=== PATIENT | male | born 1975 | race Caucasian/White ===

== ENCOUNTER 2025-01-31 17:50 | Emergency (ER) | payer BC, SELFPAY ==
--- OUTSIDE RECORDS SUMMARY | 2025-01-31 17:51 | XMS_ITS | Clinical Summary ---
Author Organization [facility] Address [address] [place] [address] Care Team Providers Care Full Time Staff Interpreter Name Role Phone Mando Correia MD Primary Care Provider [phone] Source Comments [facility],non-owned Affiliates and Associated Physician Practices is amultiple site organization consisting of ambulatory clinics and hospital sitesin [place], [place], [place] and [place]. This disclosure is being madepursuant to the Care Everywhere program and may not contain all information available regarding this patient. Last updated 18.[facility] [employer] Allergies No known active allergies Medications * Be aware that medications may not be up to date on this document. Alwaysverify current medications with the patient. albuterol HFA (PROVENTIL;JEANNA TREVOR;PROAIR) 108 (90 BASE) MCG/ACT inhalerIndicatio ns:Acute bronchitis, unspecified organism Inhale 2 puffs by mouth every 6 hours as needed for Shortness of Breath 1 Inhaler 8 Active methylPREDNISolo ne (MEDROL DOSEPAK) 4 MG tabletIndication s:Acute bronchitis, unspecified organism Take by mouth as directed 1 Each 8 Active benzonatate (TESSALON) 100 MG capsuleIndicatio ns:Cough Take 1 capsule by mouth 3 times daily as needed for Cough Reasons: Cough 30 capsule 8 Active Social History Tobacco Use Types Packs/Day Years Used Date Smoking Tobacco: Former Cigarettes Q uit: 2005 Smokeless Tobacco: Never Sex and Gender Information Value Date Recorded Sex Assigned at Not on file Legal Sex Male 8:00 PM PRIVATE BRANCH EXCHANGE OPERATOR Gender Identity Not on file Sexual Orientation Not on file Last Filed Vital Signs Vital Sign Reading Time Taken Comments Blood Pressure 140/84 08/22/2017 12:11 PM PRIVATE BRANCH EXCHANGE OPERATOR Pulse 123 08/22/2017 12:11 PM PRIVATE BRANCH EXCHANGE OPERATOR Temperature 36.8 C (98.3 F) 08/22/2017 12:11 PM PRIVATE BRANCH EXCHANGE OPERATOR Respiratory Rate 16 06/13/2017 2:43 PM PRIVATE BRANCH EXCHANGE OPERATOR Oxygen Saturation 96% 08/22/2017 12:11 PM PRIVATE BRANCH EXCHANGE OPERATOR Inhaled Oxygen Concentration - - Weight 120.2 kg (265 lb) 08/22/2017 12:11 PM PRIVATE BRANCH EXCHANGE OPERATOR Height 182.9 cm (6') 08/22/2017 12:11 PM PRIVATE BRANCH EXCHANGE OPERATOR Body Mass Index 35.94 08/22/2017 12:11 PM PRIVATE BRANCH EXCHANGE OPERATOR Plan of Treatment Health Maintenance Due Date Last Done Comments COLOGUARD (AGES 45-75) - COL ON CA SCREENING 1976 COLON MONITORING 1976 COLONOSCOPY - COLON CA SCREENING 1976 CT COLONOGRAPHY - COLON CA SCREENING 1976 Colorectal Cancer Screening 1976 FIT - COLON CA SCREENING 1976 FLEX SIG - COLON CA SCREENING 1976 LIPID TESTING 1976 HIV SCREENING 10/29/1991 HEPATITIS C SCREENING 10/24/1994 DTAP/TDAP/TD VACCINES (1 - Tdap) 10/29/1995 HEPATITIS B VACCINE (1 of 3 - 19+ 3-dose series) 10/29/1995 SCREENING FOR DIABETES 06/13/2017 COVID-19 VACCINE ( - 2023-2 5 season) 2024 DEPRESSION SCREENING 08/02/2024 INFLUENZA VACCINE (Season Ended) 2025 ZOSTER VACCINE (1 of 2) 2026 HIB VACCINE Aged Out No longer eligi ble based on patient's age to complete this topic HPV VACCINE Aged Out No longer eligi ble based on patient's age to complete this topic MENINGOCOCCAL (Group B) VACC INE SHARED DECISION-MAKING Aged Out No longer eligibl e based on patient's age to complete this topic MENINGOCOCCAL GROUPS A/C/Y/W VACCINE Aged Out No longer eligible b ased on patient's age to complete this topic PNEUMOCOCCAL VACCINE Aged Out No long er eligible based on patient's age to complete this topic Insurance [facility] Care Teams Full Time Staff Interpreter Relationship Specialty Start Date End Date Mando Croreia MD [facility] [place] [address] PCP - General Family Medicine 06/13/17
[2025-01-31 17:55] VITALS: BP 190/120; PULSE 100; RESP 17; TEMP 36.9; O2SAT 100
--- NOTE | 2025-01-31 17:57 | ED_ITS ---
HPI - Dental/Oral General Chief complaint: Dental/Oral Stated complaint: infected tooth Time Seen by Provider: 01/31/25 17:53 History of Present Illness HPI Narrative: Patient is a 49-year-old male who presents to the ER with dental pain times 7 days. No fevers or chills or sweats. No difficulty breathing or swelling. Cannot see a dentist until April. Related Data Allergies Allergy/AdvReac Type Severity Reaction Status Date / Time morphine AdvReac Vomiting Verified 01/31/25 17:55 Review of Systems Constitutional: Constitutional: Reports no additional constitutional complaints ENT: Reports system reviewed and no additional complaints, except as documented Exam Narrative: GENERAL: Well-appearing, well-nourished, and in no acute distress. HEAD: Normocephalic, atraumatic. ENT: Mucous membranes moist. Poor dentition. Large dental keyanna on tooth number 30 which is where patient's pain is located. No facial swelling. NEURO: Alert and oriented x3. PSYCH: Normal mood and affect. Course Course Emergency Course: Discussed dental wax. Discharge with antibiotic pain medication. Discharge Plan Discharge Clinical Impression: Dental caries, Toothache Patient Disposition: Home Condition: Stable Instructions: Antibiotic Form, Toothache (ED) Additional Instructions: Take antibiotics. Follow up with a dentist. Return to the ER if you cannot breathe or swallow. Patient Language: Korean Prescriptions: New hydrocodone-acetaminophen 5-325 mg tablet 1 tablet PO Q6H PRN (Reason: pain) Qty: 10 0RF amoxicillin-pot clavulanate 875-125 mg tablet 1 tablet PO Q12H Qty: 20 0RF Follow-up/Referrals: Dental Referral Line [Outside] - 1 Week
--- OUTSIDE RECORDS SUMMARY | 2025-01-31 18:26 | XMS_ITS | Encounter Summary ---
Author Organization [facility] Address [address] [place] [address] Care Team Providers Care Internal Investigator Name Role Phone Paul Payne MD Primary Care Provider Encounter Details Date Type Department Care Team (Late st Contact Info) Description 07/03/2022 teextee Message [facility] Patient Accounts [address] [place], [place] [id number] [facility] Monthly Credit Card Payment Social History Tobacco Use Types Packs/Day Years Used Date Smoking Tobacco: Former Cigarettes 3 10 0 08/02/1991 - 08/02/2001 Smokeless Tobacco: Never Comments:pcp to children counselor Alcohol Use Standard Drinks/Week Comments Yes 0 (1 standard drink = 0.6 oz pur e alcohol) RARE PHQ-2 Answer Date Recorded PHQ-2 Score - If the patient scores above 3, please move on to questions 3-9 0 06/15/2022 Sex and Gender Information Value Date Recorded Sex Assigned at Male 10/30/2024 7:51 AM CDT Legal Sex Male 6:46 AM COMPLIANCE REVIEWER Gender Identity Not on file Sexual Orientation Not on file COVID-19 Exposure Response Date Recorded In the last 10 days, have yo u been in contact with someone who was confirmed or suspected to have Coronavirus/COVID-19? No / Unsure 07/06/2022 1:57 PM COMPLIANCE REVIEWER documented as of this encounter Plan of Treatment Not on file documented as of this encounter Visit Diagnoses Not on filedocumented in this encounter Additional Health Concerns Infection Onset Date Last Indicated Resolved Time COVID-19 Rule Out 07/06/2022 07/06/2022 07/09/2022 11:25 AM COMPLIANCE REVIEWER COVID-19 Confirmed 07/06/2022 07/06/2022 2 12:32 AM COMPLIANCE REVIEWER documented as of this encounter Care Teams Internal Investigator Relationship Specialty Start Date End Date Paul Payne MD [address] [place] [address] [place] [address] PCP - General FAMILY PRACTICE 01/05/22 documented as of this encounter
--- OUTSIDE RECORDS SUMMARY | 2025-01-31 18:26 | XMS_ITS | Clinical Summary ---
Author Organization [facility] Address [address] [place] [address] Care Team Providers Care Laundry Or Dry Cleaners Counter Clerk Name Role Phone Mando Correia MD Primary Care Provider [phone] Source Comments [facility],non-owned Affiliates and Associated Physician Practices is amultiple site organization consisting of ambulatory clinics and hospital sitesin [place], [place], [place] and [place]. This disclosure is being madepursuant to the Care Everywhere program and may not contain all information available regarding this patient. Last updated 18.[facility] [employer] Allergies No known active allergies Medications * [...] on file Legal Sex Male 8:00 PM CHECK SCALER Gender Identity Not on file Sexual Orientation Not on file Last Filed Vital Signs Vital Sign Reading Time Taken Comments Blood Pressure 140/84 08/22/2017 12:11 PM CHECK SCALER Pulse 123 08/22/2017 12:11 PM CHECK SCALER Temperature 36.8 C (98.3 F) 08/22/2017 12:11 PM CHECK SCALER Respiratory Rate 16 06/13/2017 2:43 PM CHECK SCALER Oxygen Saturation 96% 08/22/2017 12:11 PM CHECK SCALER Inhaled Oxygen Concentration - - Weight 120.2 kg (265 lb) 08/22/2017 12:11 PM CHECK SCALER Height 182.9 cm (6') 08/22/2017 12:11 PM CHECK SCALER Body Mass Index 35.94 08/22/2017 12:11 PM CHECK SCALER Plan of Treatment Health Maintenance Due Date [...] patient's age to complete this topic Insurance [facility] Care Teams Laundry Or Dry Cleaners Counter Clerk Relationship Specialty Start Date End Date Mando Correia MD [facility] [place] [address] PCP - General Family Medicine 06/13/17
--- OUTSIDE RECORDS SUMMARY | 2025-01-31 18:26 | XMS_ITS | Encounter Summary ---
Author Organization [facility] Address [address] [place] [address] Care Team Providers Care Toe Puller Name Role Phone Paul Payne MD Primary Care Provider Encounter Details Date Type Department Care Team (Late st Contact Info) Description 06/09/2023 [employer] Message [employer]) Business Office [place] [address] [facility] Provider Action Needed Social History Tobacco Use Types Packs/Day Years Used Date Smoking Tobacco: Former Cigarettes 3 10 0 08/02/1991 - 08/02/2001 Smokeless Tobacco: Never Comments:pcp to certified credit counselor Alcohol Use Standard Drinks/Week Comments Yes 0 (1 standard drink = 0.6 oz pur e alcohol) RARE PHQ-2 Answer Date Recorded Patient Health Questionnaire-2 Score 0 05/17/2023 Sex and Gender Information Value Date Recorded Sex Assigned at Male 10/30/2024 7:51 AM CDT Legal Sex Male 6:46 AM DIGITAL CARTOGRAPHIC TECHNICIAN Gender Identity Not on file Sexual Orientation Not on file documented as of this encounter Plan of Treatment Not on file documented as of this encounter Visit Diagnoses Not on filedocumented in this encounter Additional Health Concerns Assessment Noted Time PHQ-9 Depression Total Score: 0 09/21/19 23 8:24 AM DIGITAL CARTOGRAPHIC TECHNICIAN documented as of this encounter Care Teams Toe Puller Relationship Specialty Start Date End Date Paul Payne MD [address] [place] [address] [place] [address] PCP - General FAMILY PRACTICE 01/05/22 documented as of this encounter
--- OUTSIDE RECORDS SUMMARY | 2025-01-31 18:26 | XMS_ITS | Clinical Summary ---
Author Organization [facility] Address [address] [place] [address] Care Team Providers Care Fire Prevention Inspector Name Role Phone Paul Payne MD Primary Care Provider Allergies No known active allergies Medications metoprolol succinate ER (TOPROL-XL) 25 MG 24 hr tabletIndications :Benign essential HTN Take 1 tablet (25 mg total) by mouth 2 (two) times a day. 180 tablet 01/30/20 25 Active atorvastatin (LIPITOR) 10 MG tabletIndications :Mixed hyperlipidemia Take 1 tablet (10 mg total) by mouth nightly at bedtime. 90 tablet 01/30/20 25 Active D-1000 EXTRA STRENGTH 25 MCG (1000 UT) Tab tabletIndications :Vitamin D deficiency TAKE 5 TABLETS BY MOUTH EVERY DAY 450 tablet 09/28/19 24 025 Discontinued meloxicam (MOBIC) 15 MG tabletIndications :Left foot pain,Plantar fasciitis Take 1 tablet (15 mg total) by mouth daily. 30 tablet 10/31/19 25 025 Discontinued metoprolol succinate ER (TOPROL-XL) 25 MG 24 hr tabletIndications :Benign essential HTN Take 1 tablet (25 mg total) by mouth every evening. 90 tablet 1 10/31/19 25 025 Discontinued(Re order) Active Problems Problem Noted Date Diagnosed Date Benign essential HTN 01/05/2022 Prediabetes 01/05/2022 Mixed hyperlipidemia 01/05/2022 Vitamin D deficiency 01/05/2022 Class 2 severe obesity due t o excess calories with serious comorbidity and body mass index (BMI) of 37.0 to 37.9 in adult 01/05/2022 Resolved Problems Problem Noted Date Diagnosed Date Resolved Date History of headache 02/10/2023 01/30/20 Screen for colon cancer 04/14/202204/03 Overview (04/14/2022): Added automatically from request for surgery [id number] Encounter for weight management 02/16/2022 02/23/2022 Encounters Date Type Department Care Team Description 01/29/2025 1:20 PM CDT Office Visit [address] [place] [address] Paul Payne MD Follow Up (3 month ) 01/29/2025 Travel 11/01/[address] [place] [address] Paul Payne MD Results from Last 3 Months Immunizations Immunization Administration Dates Next Due Pneumococcal (Pneumovax 23) 01/05/2022 Family History Medical History Relation Comments Arthritis Father Diabetes Father Heart Attack Father Heart Disease Father Hyperlipidemia Father Hypertension Father Cancer Maternal Grandmother Cancer Mother Lupus Mother No Known Problems Sister Relation Status Comments Father Alive Maternal Grandmother Alive Mother Alive Sister Alive Social History Tobacco Use Types Packs/Day Years Used Date Smoking Tobacco: Former Cigarettes 3 10 0 08/02/1991 - 08/02/2001 Smokeless Tobacco: Never Tobacco Cessation:Counseling Given: No Comments:pcp to certified rehabilitation counselor Alcohol Use Standard Drinks/Week Comments Not Currently 0 (1 standard drink = 0.6 oz pur e alcohol) RARE PHQ-2 Answer Date Recorded Patient Health Questionnaire-2 Score 0 10/30/2024 Sex and Gender Information Value Date Recorded Sex Assigned at Male 10/30/2024 7:51 AM CDT Legal Sex Male 6:46 AM CHECK PILOT Gender Identity Not on file Sexual Orientation Not on file Last Filed Vital Signs Vital Sign Reading Time Taken Comments Blood Pressure 146/78 01/29/2025 1:47 PM CDT Pulse 110 01/29/2025 1:23 PM CDT Temperature 36.4 C (97.5 F) 01/29/2025 1:23 PM CDT Respiratory Rate 16 01/29/2025 1:23 PM CDT Oxygen Saturation 96% 01/29/2025 1:23 PM CDT Inhaled Oxygen Concentration - - Weight 125.6 kg (277 lb) 01/29/2025 1:23 PM CDT Height 182.9 cm (6') 01/29/2025 1:23 PM CDT Body Mass Index 37.57 01/29/2025 1:23 PM CDT Plan of Treatment Health Maintenance Due Date Last Done Comments Annual Physical 10/29/1979 Hepatitis C 1994 DTaP, Tdap and Td Vaccines ( 1 - Tdap) 10/29/1995 Hepatitis B Vaccines (1 of 3 - 19+ 3-dose series) 10/29/1995 COVID-19 Vaccine ( - 2023-2 5 season) 2024 Colorectal Cancer Screening Colonoscopy (10 Years) 04/21/2032 04/21/2022 Pneumococcal Vaccine: Pediat rics (0 to 5 Years) and At-Risk Patients (6 to 49 Years) Aged Out 01/05/2022 No longer eligi ble based on patient's age to complete this topic PHQ-2 (Physician [place]) Completed 10/30/2024 Meningococcal B Vaccine Aged Out No l onger eligible based on patient's age to complete this topic Meningococcal Vaccine Aged Out No colton emigdio eligible based on patient's age to complete this topic RSV Immunizations Under 20 Months Aged Out No longer eligible based on patient's age to complete this topic Medical Devices Implanted Type Area Manager Rehab Device Identifier Shelf Expiration Date Model / Serial / Lot Clip Resolution 360 Deg 2.8mm X 235cm - [id number] Implanted:Qty: 1 on 04/21/2022 by Fady Dawson MD at [facility] Clip Implant [employer] 12/12/2023 [id number] / / [id number] Clip Resolution 360 Deg 2.8mm X 235cm - [id number] Implanted:Qty: 1 on 04/21/2022 by Fady Dawson MD at [facility] Clip Implant [employer] 12/12/2023 [id number] / / [id number] Insurance [facility] [address] Care Teams Fire Prevention Inspector Relationship Specialty Start Date End Date Paul Payne MD [address] [place] [address] [place] [address] PCP - General FAMILY PRACTICE 01/05/22
== END 2025-01-31 18:30 | disposition home or self-care (01) ==
LOC: ANHED 18:25
PROVIDERS: Emergency Provider Emergency Medicine; PCP Family Medicine
DX: K02.9 Dental caries, unspecified (principal)
CPT/HCPCS: 99283